=== PATIENT | male | born 1975 | race Caucasian/White ===

== ENCOUNTER 2023-01-10 16:49 | Emergency (ER) | payer SELFPAY ==
[2023-01-10 16:51] VITALS: BP 137/94; PULSE 84; RESP 18; TEMP 37.1; O2SAT 99; BMI 27.7
--- NOTE | 2023-01-10 17:00 | DI.RAD.S_ITS ---
PROCEDURE: XR CHEST 1V INDICATIONS: chest pain TECHNIQUE: One view of the chest was acquired. COMPARISON: None. FINDINGS: Surgical changes and devices: None. Lungs and pleura: Lungs are clear. No pleural effusions or pneumothorax. Mediastinum: Mediastinal contours appear normal. Heart size is normal. Bones and chest wall: No suspicious bony lesions. Overlying soft tissues appear unremarkable. IMPRESSION: No acute pulmonary process. Dictated by: Lisa Nava M.D. on 01/10/2023 at 17:44 Approved by: Lisa Nava M.D. on 01/10/2023 at 17:44
[2023-01-10 18:04] LABS: Prothrombin Time 11.6 SECONDS (10.1-12.7)
[2023-01-10 18:06] LABS: PTT Partial Thromboplastin Tim 27 SECONDS (26-36)
[2023-01-10 18:07] LABS: Add Manual Diff / Slide Review NO; Basophils Absolute Auto 0 /uL (0-100); Basophils Percent Auto 0.6 % (0-2); Eosinophils Absolute Auto 200 /uL (0-450); Eosinophils Percent Auto 3.3 % (2-4); Hematocrit 41.7 % (41-53); Hemoglobin 14.4 g/dL (13.5-17.5); Lymphocytes Absolute Auto 2000 /uL (1100-4500); Lymphocytes Percent Auto 28.1 % (25-40); Mean Corpuscular HGB Conc 34.5 % (30-36); Mean Corpuscular Hemoglobin 30.3 PG (26-34); Monocytes Absolute Auto 500 /uL (0-900); Monocytes Percent Auto 7.6 % (3-14); Neutrophils Absolute Auto 4400 /uL (1500-7000); Neutrophils Percent Auto 60.4 % (50-75); Platelet Count 230 X10^3/uL (150-400); Red Blood Cell Count 4.74 X10^6/uL (4.5-5.9); Red Cell Distribution Width 13.5 % (11.6-14.8); White Blood Cell Count 7.3 X10^3/uL (4.5-11.0)
[2023-01-10 18:09] LABS: Alanine Aminotransferase 32 IU/L (<50); Albumin 4.3 g/dL (3.5-5.0); Albumin Globulin Ratio 1.4 (1.0-2.8); Alkaline Phosphatase 48 U/L (38-126); Aspartate Aminotransferase 32 IU/L (17-59); Bilirubin Total 0.5 mg/dL (0.2-1.3); Blood Urea Nitrogen 23 mg/dL (9-20); Calcium 8.9 mg/dL (8.4-10.2); Carbon Dioxide 26 mmol/L (22-32); Chloride 103 mmol/L (98-107); Creatine Kinase 168 U/L (55-170); Estimated Glomerular Filt Rate > 60 mL/min (>60); Glucose 99 mg/dL (70-100); HEMOLYSIS 15 (0-50); Lipase 77 U/L (23-300); Magnesium 2.2 mg/dL (1.6-2.3); Potassium 4.2 mmol/L (3.4-5.1); Sodium 136 mmol/L (137-145); Total Protein 7.3 g/dL (6.3-8.2)
[2023-01-10 18:20] LABS: Troponin I < 0.012 ng/mL (0.01-0.034)
== END 2023-01-10 19:13 | disposition left against medical advice (07) ==
PROVIDERS: Emergency Provider Emergency Medicine
DX: R07.9 Chest pain, unspecified (principal); R42 Dizziness and giddiness
CPT/HCPCS: 36415; 71045; 80053; 82550; 83690; 83735; 84484; 85025; 85610; 85730; 93005; 99281

== ENCOUNTER → 2023-09-26 14:54 | Outpatient (CLI) | payer SELFPAY ==
--- NOTE | 2023-09-26 15:01 | DI.US.S_ITS ---
PROCEDURE: US SCROTUM INDICATIONS: RIGHT TESTICLE PAIN (DULLNESS) AND LUMP TECHNIQUE: Real-time scanning was performed of the scrotum and testicles, with image documentation. Color and pulse Doppler interrogation was performed of both testicles. COMPARISON: None. FINDINGS: Right: Testicle is normal in size at 5.1 x 2.8 x 4.0 cm, and homogenous in echotexture. Epididymis is normal in overall size and morphology. No varicoceles. Hydroceles present. Overlying scrotal skin is normal in thickness. Non vascular masslike foci are present within the right testicle measuring 5.4 x 2.7 x 4.4 mm, 8.2 x 4.0 x 4.7 mm and 4.8 x 4.4 x 4.2 mm. Left: Testicle is normal in size at 4.8 x 2.5 x 3.6 cm, and homogeneous in echotexture. Epididymis is normal in overall size and morphology. No varicoceles. Hydrocele is present. Overlying scrotal skin is normal in thickness. Doppler: Color and pulse Doppler demonstrate normal and symmetric arterial flow in both testicles. Venous flow is unable to be identified in the left testicle. IMPRESSION: Nodular type masses identified on within the right testicle is above. Etiology is indeterminate on the basis of this exam. However, they appear nonvascular and further urologic evaluation is recommended. Dictated by: Lisa Nava M.D. on 09/26/2023 at 16:48 Approved by: Lisa Nava M.D. on 09/26/2023 at 16:50
== END ==
PROVIDERS: PCP Physician Assistant Medical; Referring Provider Physician Assistant Medical; Visit Provider Physician Assistant Medical
DX: N43.3 Hydrocele, unspecified (principal); N50.9 Disorder of male genital organs, unspecified; N50.811 Right testicular pain
CPT/HCPCS: 76870; 93975

== ENCOUNTER → 2023-10-04 10:39 | Outpatient (CLI) | payer SELFPAY ==
[2023-10-04 20:48] LABS: Urine N gonorrhoeae NOT DETECTED
[2023-10-04 20:53] LABS: Urine Chlamydia NOT DETECTED
== END ==
PROVIDERS: PCP Physician Assistant Medical; Visit Provider Physician Assistant Medical
DX: N50.811 Right testicular pain (principal); N45.1 Epididymitis
CPT/HCPCS: 87491; 87591

== ENCOUNTER → 2023-10-10 09:26 | Outpatient (CLI) | payer SELFPAY ==
[2023-10-10 21:13] LABS: Add Manual Diff / Slide Review NO; Basophils Absolute Auto 0 /uL (0-100); Basophils Percent Auto 0.7 % (0-2); Eosinophils Absolute Auto 200 /uL (0-450); Eosinophils Percent Auto 3.4 % (2-4); Hematocrit 46.4 % (41-53); Hemoglobin 15.8 g/dL (13.5-17.5); Lymphocytes Absolute Auto 1900 /uL (1100-4500); Lymphocytes Percent Auto 34.7 % (25-40); Mean Corpuscular HGB Conc 34.1 % (30-36); Mean Corpuscular Hemoglobin 30.6 PG (26-34); Mean Corpuscular Volume 89.7 fL (80-100); Monocytes Absolute Auto 500 /uL (0-900); Monocytes Percent Auto 8.1 % (3-14); Neutrophils Absolute Auto 3000 /uL (1500-7000); Neutrophils Percent Auto 53.1 % (50-75); Platelet Count 244 X10^3/uL (150-400); Red Blood Cell Count 5.17 X10^6/uL (4.5-5.9); Red Cell Distribution Width 13.1 % (11.6-14.8); White Blood Cell Count 5.6 X10^3/uL (4.5-11.0)
[2023-10-10 21:18] LABS: Alanine Aminotransferase 24 IU/L (<50); Albumin 4.6 g/dL (3.5-5.0); Albumin Globulin Ratio 1.7 (1.0-2.8); Alkaline Phosphatase 55 U/L (38-126); Aspartate Aminotransferase 29 IU/L (17-59); BUN Creatinine Ratio 20.2 (6-22); Bilirubin Total 0.7 mg/dL (0.2-1.3); Blood Urea Nitrogen 20 mg/dL (9-20); Calcium 9.7 mg/dL (8.4-10.2); Carbon Dioxide 29 mmol/L (22-32); Chloride 102 mmol/L (98-107); Cholesterol 295 mg/dL (140-199); Estimated Glomerular Filt Rate > 60 mL/min (>60); Globulin 2.7 g/dL (1.7-4.1); Glucose 133 mg/dL (70-100); HDL Cholesterol 61 mg/dL (40-60); HEMOLYSIS < 15 (0-50); LDL Cholesterol Calculated 203 mg/dL (<100); Potassium 4.8 mmol/L (3.4-5.1); Sodium 136 mmol/L (137-145); Total Protein 7.3 g/dL (6.3-8.2); Triglycerides 157 mg/dL (35-150)
[2023-10-10 21:41] LABS: TSH w/ Reflex to FT4 1.73 uIU/mL (0.47-4.68)
== END ==
PROVIDERS: PCP Physician Assistant Medical; Visit Provider Physician Assistant Medical
DX: Z12.5 Encounter for screening for malignant neoplasm of prostate (principal); I10 Essential (primary) hypertension; N50.811 Right testicular pain
CPT/HCPCS: 80053; 80061; 84443; 85025; G0103

== ENCOUNTER → 2024-07-10 09:28 | Outpatient (CLI) | payer OTHER, SELFPAY ==
[2024-07-10 19:23] LABS: Hemoglobin A1C% w Est Avg Glu 5.4 % (4.0-6.0)
[2024-07-10 19:24] LABS: Alanine Aminotransferase 22 IU/L (<50); Albumin 4.5 g/dL (3.5-5.0); Albumin Globulin Ratio 1.6 (1.0-2.8); Alkaline Phosphatase 51 U/L (38-126); Aspartate Aminotransferase 26 IU/L (17-59); BUN Creatinine Ratio 21.4 (6-22); Bilirubin Total 0.6 mg/dL (0.2-1.3); Blood Urea Nitrogen 21 mg/dL (9-20); Calcium 9.6 mg/dL (8.4-10.2); Carbon Dioxide 30 mmol/L (22-32); Chloride 103 mmol/L (98-107); Cholesterol 251 mg/dL (140-199); Estimated Glomerular Filt Rate > 60 mL/min (>60); Globulin 2.9 g/dL (1.7-4.1); Glucose 116 mg/dL (70-100); HDL Cholesterol 59 mg/dL (40-60); HEMOLYSIS < 15 (0-50); LDL Cholesterol Calculated 169 mg/dL (<100); Potassium 4.9 mmol/L (3.4-5.1); Sodium 137 mmol/L (137-145); Total Protein 7.4 g/dL (6.3-8.2); Triglycerides 115 mg/dL (35-150)
[2024-07-10 19:56] LABS: TSH w/ Reflex to FT4 1.29 uIU/mL (0.47-4.68)
== END ==
PROVIDERS: PCP Physician Assistant Medical; Visit Provider Physician Assistant Medical
DX: E87.1 Hypo-osmolality and hyponatremia (principal); I10 Essential (primary) hypertension; R73.9 Hyperglycemia, unspecified
CPT/HCPCS: 80053; 80061; 83036; 84443

== ENCOUNTER 2024-07-31 14:07 | Day surgery (SDC) | payer OTHER, SELFPAY ==
[2024-07-29 14:38] VITALS: BMI 27.5
--- NOTE | 2024-07-31 | PATH_ITS ---
[facility] Accession Number: [id number] No. of containers..01 Tissue . 01 Material submitted: . neck - POSTERIOR NECK MASS . 01 Diagnosis: SOFT TISSUE, POSTERIOR NECK MASS, EXCISION: Mature adipose tissue with fat necrosis, compatible with lipoma. [facility] 08/04/2024 1115 Local . 01 Electronically signed: . Summer Willingham MD, Pathologist NPI- [id number] . 01 Gross description: . Received in formalin with two patient identifiers and posterior nodule mass, is a yellow and brown lobulated soft tissue fragment with no skin grossly identified measuring 4.5 x 3.4 x 1.4 cm. Inked blue and sectioned to reveal a yellow smooth cut surface. Marshmallow Machine Worker sections submitted in A1. ([id number]) /MRV 08/01/20247 Local . 01 Pathologist provided ICD-10: D17.9 . 01 CPT . 651398 Specimen Comment: A courtesy copy of this report has been sent to [facility] Performed at: [address] [address], [place], [place] [id number] MD Jayden Beck MD Phone: [phone]
[2024-07-31 14:27] VITALS: BMI 27.5
[2024-07-31 14:35] VITALS: BP 154/100; PULSE 71; RESP 16; TEMP 36.2; O2SAT 98
[2024-07-31] MEDS: LACTATED RINGERS 1,000 ML 42 ML IV ×2 (14:39→16:07)
--- NOTE | 2024-07-31 15:34 | PM.HP.IH.1 ---
History of Present Illness History of Present Illness Date Patient Seen: 07/31/24 Time Patient Seen: 15:34 Chief complaint: [facility] [place]ative: 49-year-old white male had an attempted lipoma excision as primary care doctor's office, they were not able to complete the procedure in his office aborted and closed the wound with nylon sutures. He presents now for excision. [facility] Medical History (Updated 07/31/24 @ 15:36 by Lamont Justin MD) Palpable mass of neck Testicular nodule Epididymitis High blood pressure Right testicular pain Social History Smoking Status: Current every day smoker alcohol intake: current Meds Home Medications and Allergies Home Medications Medication Instructions Recorded Confirmed Type acyclovir 400 mg tablet 400 mg PO DAILY #90 tabs 12/18/23 06/24/24 Rx hydrochlorothiazide 12.5 mg tablet 12.5 mg PO DAILY #90 tabs 12/18/23 07/31/24 Rx doxycycline monohydrate 100 mg 100 mg PO BID #14 caps 07/29/24 07/29/24 Rx capsule hydrocodone 5 mg-acetaminophen 325 1 tab PO BID PRN pain #10 tabs 07/29/24 07/29/24 Rx mg tablet losartan 50 mg tablet 50 mg PO DAILY elevated bp #90 tabs 07/29/24 07/31/24 Rx Allergies Allergy/AdvReac Type Severity Reaction Status Date / Time ciprofloxacin [From Cipro] AdvReac Intermediate dizzy Verified 07/31/24 14:27 Review of Systems Review of Systems ROS: Yes All systems reviewed with the patient and are negative except as otherwise documented Exam Vital Signs (past 8 hours): - 07/31/24 14:35 Temperature 97.1 F L Pulse Rate 71 Respiratory Rate 16 Blood Pressure 154/100 H Pulse Oximetry 98 Oxygen Delivery Method Room Air Oxygen Delivery Method Room Air Narrative Exam Narrative: Gen: NAD, sitting comfortably in bed, appears well HEENT: Sclera are anicteric, head is normocephalic and atraumatic, trachea is midline. Greater than 5 cm bulge, likely lipoma, in the right posterior occipital region CV: RRR, no JVD Resp: clear to auscultation bilaterally, equal chest wall movement bilaterally Abd: soft, nontender, normoactive bowel sounds Ext: no edema, full range of motion Neuro: Cranial nerves II-XII grossly intact, no focal deficits Skin: No erythema or ecchymosis Assessment & Plan Assessment and plan (1) Palpable mass of neck: Status: Acute Assessment & Plan narrative: Risks including bleeding, infection, poor cosmetic outcome, injury to spinal accessory nerve were all explained to the patient patient agreed to proceed with excision of posterior neck mass. Time-Based Coding :: [TOTAL MINUTES] spent with patient and on the chart (including review of chart, obtaining history, exam, reviewing outside data, placing orders, documenting exam and treatment plan, and counseling patient) on [DATE]. [employer] Operator Document charge(s): No
--- NOTE | 2024-07-31 15:43 | SUR.OPER ---
Prone on padded OR bed, head in foam head support, gel chest rolls, gel pad under knees, pillow under lower legs, toes free of pressure, arms secured on padded arm boards at <90 degrees abduction. Safety belt at thigh.
[2024-07-31] MEDS: CEFAZOLIN 2 GM/100 ML PREMIX 100 ML IV (15:45)
[2024-07-31] MEDS: LIDOCAINE 1% W/EPI 20ML 20 ML INJ (16:09)
[2024-07-31] MEDS: BUPIVACAINE 0.5% (PF) 30 ML VIAL 10 ML INJ (16:11)
--- NOTE | 2024-07-31 16:18 | PM.OP.1 ---
Operative Date/Time/Diagnoses Date of procedure: 07/31/24 Time of procedure: 16:19 Pre-op diagnosis: Posterior neck mass Post-op diagnosis: same Procedure & Clinicians Procedure: Excision of deep, subgaleal posterior scalp mass 5.2 cm in size Same procedure as scheduled: Yes Indications: Patient had attempted removal of lipoma the primary care office. This was found to be subgaleal and the procedure was aborted. Surgeon: Lamont Justin Click Yes if Unassisted: Yes Anesthesia Type: General Operative Notes Findings: Subgaleal lipoma measuring 5.2 x 2.5 cm in size Closure Type: primary Specimen(s): other (Posterior neck mass) Procedure in detail: Patient was brought to the operating room suite. General anesthesia was induced and the patient was placed in the prone position. The scalp and posterior neck were prepped with Hibiclens. Total of 20 mL of 1% lidocaine with epi and 0.5% Marcaine plain were infiltrated around the previous incision. The previous provider made a longitudinal incision on the back of the scalp toward the neck had been closed with interrupted nylon sutures. Scissors were used to remove these nylon sutures. The previous opening was inspected and irrigated. Bovie electrocautery was used for hemostasis. The galea was opened revealing the lipoma. Blunt dissection was used to pull the lipoma out from under the galea fascia. The lipoma came out in 1 piece and measured 5.2 x 2.5 cm. This was passed off as a specimen. The galea was closed with 3-0 Vicryl. The scalp was closed with 4-0 Monocryl in a running subcuticular fashion and Dermabond. Patient was extubated transferred to PACU in stable condition for anticipated same-day discharge. Complications: none Post-operative Condition: stable Disposition: PACU
[2024-07-31 16:27] VITALS: BP 144/100; PULSE 61; RESP 21; TEMP 36.2; O2SAT 99
[2024-07-31 16:32] VITALS: BP 148/105; PULSE 70; RESP 12; O2SAT 100
[2024-07-31 16:37] VITALS: BP 147/98; PULSE 68; RESP 12; O2SAT 100
[2024-07-31 16:42] VITALS: BP 148/96; PULSE 67; RESP 12; O2SAT 100
== END 2024-07-31 16:59 | disposition home or self-care (01) ==
PROVIDERS: PCP Physician Assistant Medical; Referring Provider Surgery; Visit Provider Surgery
PROC: (CPT 21014; principal; 2024-07-31 15:15)
DX: D17.0 Benign lipomatous neoplasm of skin and subcutaneous tissue of head, face and neck (principal); F17.210 Nicotine dependence, cigarettes, uncomplicated
CPT/HCPCS: 21014; J0690; J1100; J2250; J2405; J2704; J3010